=== PATIENT | male | born 2000 | race Caucasian/White ===

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

== ENCOUNTER 2018-08-09 16:11 | Emergency (ER) | payer MEDICAID, OTHER ==
[~2018-08-09] VITALS: Ht 170.2 cm; Wt 69.4 kg
[~2018-08-09 16:11] MED LIST changes: +ACET500C5 PO; -ALBU8.5H3 IH; +ALBU8.5H8 IH; +CETI10CA PO; +GUAI120S25 PO
[2018-08-09 16:19] VITALS: BP 122/67; PULSE 94; RESP 18; Ht 170.2 cm; Wt 69.4 kg
[2018-08-09] MEDS ORDERED: IBUPROFEN 400 MG TAB PO STA (17:49)
[2018-08-09] MEDS ORDERED: ACETAMINOPHEN 325 MG TAB PO STA (17:49)
[2018-08-09] MEDS ORDERED: IBUP-1542 PO (17:56)
[2018-08-09] MEDS ORDERED: ACET500C5 PO (17:56)
--- NOTE | 2018-08-09 18:04 | ERD ---
ER Documentation Chief Complaint Chief Complaint cough, body aches and fever x2 days HPI 18-year-old male with past medical history of questionable asthma, no past surgical history who presents with 2-day complaint of cough, generalized body aches, fevers, headache, sore throat, rhinorrhea. Had intermittent shortness of breath pleuritic type chest discomfort with cough. 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 He otherwise denies chest pain, nausea, vomiting, abdominal pain. Has a stable history of asthma but does not take any medications not had any exacerbations. Took NyQuil for his symptoms. Has vital signs noted fever of 102.1. ROS All systems reviewed and are negative except as per history of present illness. Medications Home Meds Active Scripts Ibuprofen* (Motrin*) 600 Mg Tab, 600 MG PO Q6, #30 TAB Prov:DEVON SWEENEY PA-C 08/09/18 Acetaminophen* (Tylophen*) 500 Mg Capsule, 1 CAP PO Q6H PRN for PAIN AND OR ELEVATED TEMP, #20 CAP Prov:DEVON SWEENEY PA-C 08/09/18 Acetaminophen* (Tylophen*) 500 Mg Capsule, 1 CAP PO Q6H PRN for PAIN AND OR ELEVATED TEMP, #20 CAP Prov:AMANDA ROMERO NP 10/25/16 Cetirizine Hcl* (Zyrtec*) 10 Mg Capsule, 10 MG PO DAILY, #30 TAB.CHEW Prov:AMANDA ROMERO NP 10/25/16 Sniyfaegyrm-W-Ycirdofyxm Hb* (Guaifenesin* DM Syrup) 120 Ml Syrup, 5 ML PO Q4H PRN for COUGH, #120 ML Prov:AMANDA ROMERO NP 10/25/16 Ibuprofen* (Motrin*) 600 Mg Tab, 600 MG PO Q6, #20 TAB Prov:MARY LEON PA-C 01/15/15 Albuterol Sulfate* (Albuterol Sulfate* HFA) 8.5 Gm Hfa.aer.ad, 1-2 PUFF INH Q4 PRN for SHORTNESS OF BREATH, #1 EA Prov:MARY LEON PA-C 01/15/15 Prednisone* (Prednisone*) 20 Mg Tab, 40 MG PO DAILY for 5 Days, TAB Prov:MARY LEON PA-C 01/15/15 Reported Medications [qtussin] No Conflict Check 07/25/11 Ibuprofen* Susp (Motrin* Susp) 20 Mg/Ml Susp 07/25/11 Albuterol Sulfate* (Proair HFA*) 8.5 Gm Hfa.aer.ad, 8.5 GM IH PRN 05/06/11 Allergies Allergies: Coded Allergies: No Known Allergy (Verified , 08/03/14) PMhx/Soc History of Surgery: Yes (L femur repair) Anesthesia Reaction: No Hx Neurological Disorder: No Hx Respiratory Disorders: Yes (Asthma) Hx Cardiac Disorders: No Hx Psychiatric Problems: No Hx Miscellaneous Medical Probl: Yes (mild asthma, L subtrochanteric femur fx 03/17/2010) Hx Alcohol Use: No Hx Substance Use: No Hx Tobacco Use: No FmHx Family History: No diabetes, No coronary disease, No other Physical Exam Vitals Vital Signs Date Temp Pulse Resp B/P (MAP) Pulse Ox O2 O2 Flow FiO2 Time Delivery Rate 08/09/18 102.4 17:56 08/09/18 102.4 17:56 08/09/18 102.1 94 18 122/67 98 16:19 (85) Physical Exam I have reviewed the triage vital signs. Const: Well nourished, well developed, appears stated age Eyes: PERRL, no conjunctival injection HENT: NCAT, Neck supple without meningismus CV: RRR, Warm, well-perfused extremities RESP: No wheezing or rhonchi, poor expiratory effort GI: soft, non-tender, non-distended, no masses MSK: No gross deformities appreciated Skin: Warm, dry. No rashes Neuro: grossly non focal Psych: Appropriate mood and affect. Results 24 hrs Current Medications Medications Dose Sig/Michelle Start Time Status Last (Trade) Ordered Route PRN Stop Time Admin Dose Reason Admin 650 mg ONCE STAT 08/09/18 DC 08/09/18 Acetaminophen PO 17:49 17:56 (Tylenol 08/09/18 17:51 Tab) Ibuprofen 400 mg ONCE STAT 08/09/18 DC 08/09/18 (Motrin) PO 17:49 17:56 08/09/18 17:51 Procedures/MDM 18-year-old male presents with flulike symptoms and fever for 2 days. Course: Tylenol and ibuprofen with good effect, chest x-ray without acute finding, symptoms likely viral URI in nature. The patient's clinical presentation is very consistent with an acute viral syndrome. No evidence of pneumonia. The patient is well-appearing without respiratory distress. Normal oxygen saturation. No indication for Tamiflu. The patient does not exhibit any clinical signs or symptoms concerning for serious bacterial infection or systemic illness. Based on history and clinical exam findings the patient does not appear to have evidence of pneumonia, strep pharyngitis, urinary tract infection, bacteremia, sepsis, or meningitis. For these reasons I do not believe it is necessary to obtain laboratory testing. I believe it would be appropriate for symptom control, and close outpatient primary care follow-up. We discussed follow up with the patient's primary care doctor within 24 to 48 hours as needed. We also discussed return to the emergency room for worsening symptoms or worsening condition. DISPOSITION PLAN: We discussed follow up with the patient's primary care doctor within 24 to 48 hours. Patient counseled regarding my diagnostic impression and care plan. Prior to discharge all questions answered. Pt agrees with treatment plan and understands strict return precautions. Precautionary instructions provided including instructions to return to the ER if not improving or for any worsening or changing symptoms or concerns. Disclaimer: Inadvertent spelling and grammatical errors are likely due to EHR/dictation software use and do not reflect on the overall quality of patient care. Also, please note that the electronic time recorded on this note does not necessarily reflect the actual time of the patient encounter. Departure Diagnosis: Primary Impression: Influenza-like symptoms Condition: Stable Patient Instructions: Influenza (Adult), Uri, Viral, No Abx (Adult) Referrals: [facility] YOU HAVE RECEIVED A MEDICAL SCREENING EXAM AND THE RESULTS INDICATE THAT YOU DO NOT HAVE A CONDITION THAT REQUIRES URGENT TREATMENT IN THE EMERGENCY DEPARTMENT. FURTHER EVALUATION AND TREATMENT OF YOUR CONDITION CAN WAIT UNTIL YOU ARE SEEN IN YOUR DOCTORS OFFICE WITHIN THE NEXT 1-2 DAYS. IT IS YOUR RESPONSIBILITY TO MAKE AN APPOINTMENT FOR FOLOW-UP CARE. IF YOU HAVE A PRIMARY DOCTOR --you should call your primary doctor and schedule an appointment IF YOU DO NOT HAVE A PRIMARY DOCTOR YOU CAN CALL OUR PHYSICIAN REFERRAL HOTLINE AT IF YOU CAN NOT AFFORD TO SEE A PHYSICIAN YOU CAN CHOSE FROM THE FOLLOWING [facility] [address] [facility]. [facility] [address] [facility]. [facility] [address] [facility] [address] [facility] [address] [facility]. [facility] [address] Additional Instructions: Call your primary care doctor TOMORROW for an appointment during the next 2-3 days.See the doctor sooner or return here if your condition worsens before your appointment time. DEVON SWEENEY PA-C Aug 09, 2018 18:04
== END 2018-08-09 18:56 | disposition home or self-care (01) ==
LOC: FTE 16:11
DX: J02.9 Acute pharyngitis, unspecified (principal); J34.89 Other specified disorders of nose and nasal sinuses; J45.909 Unspecified asthma, uncomplicated; R07.89 Other chest pain
CPT/HCPCS: 71046; Z7502; Z7610

== ENCOUNTER 2018-08-10 23:28 | Emergency (ER) | payer OTHER ==
[~2018-08-10] VITALS: Wt 68.6 kg
[2018-08-11] MEDS ORDERED: PROM5SYR2 PO (04:16)
[2018-08-11] MEDS ORDERED: PROMETHAZINE/CODEINE 5ML CUP PO ONE (04:30)
[2018-08-11 04:36] VITALS: BP 139/86; PULSE 89; RESP 20
--- NOTE | 2018-08-11 20:16 | ERD ---
ER Documentation Chief Complaint Chief Complaint SCHWARZ, COUGH, DIARRHEA, FEVER X'S 3 DAYS HPI 18-year-old male presents complaint of headache, cough, body aches, diarrhea, fever, for the past 3 days. Patient was just here yesterday and was diagnosed with influenza. However he states he has been having difficulty falling asleep due to the cough and would like cough medication. Denies any worsening symptoms from last appointment. ROS All systems reviewed and are negative except as per history of present illness. Medications Home Meds Active Scripts Promethazine HCl/Codeine (Prometh-Codein 6.25-10 mg/5 ml) 5 Ml Syrup, 5 ML PO Q4, #4 OZ Prov:LILA HANSEN 08/11/18 Ibuprofen* (Motrin*) 600 Mg Tab, 600 MG PO Q6, #30 TAB Prov:DEVON SWEENEY PA-C 08/09/18 Acetaminophen* (Tylophen*) 500 Mg Capsule, 1 CAP PO Q6H PRN for PAIN AND OR ELEVATED TEMP, #20 CAP Prov:DEVON SWEENEY PA-C 08/09/18 Acetaminophen* (Tylophen*) 500 Mg Capsule, 1 CAP PO Q6H PRN for PAIN AND OR ELEVATED TEMP, #20 CAP Prov:AMANDA ROMERO NP 10/25/16 Cetirizine Hcl* (Zyrtec*) 10 Mg Capsule, 10 MG PO DAILY, #30 TAB.CHEW Prov:AMANDA ROMERO NP 10/25/16 Hiekgxtnluy-Z-Shjfwxeiee Hb* (Guaifenesin* DM Syrup) 120 Ml Syrup, 5 ML PO Q4H PRN for COUGH, #120 ML Prov:AMANDA ROMERO NP 10/25/16 Ibuprofen* (Motrin*) 600 Mg Tab, 600 MG PO Q6, #20 TAB Prov:MARY LEON PA-C 01/15/15 Albuterol Sulfate* (Albuterol Sulfate* HFA) 8.5 Gm Hfa.aer.ad, 1-2 PUFF INH Q4 PRN for SHORTNESS OF BREATH, #1 EA Prov:MARY LEON PA-C 01/15/15 Prednisone* (Prednisone*) 20 Mg Tab, 40 MG PO DAILY for 5 Days, TAB Prov:MARY LEON PA-C 01/15/15 Reported Medications [qtussin] No Conflict Check 07/25/11 Ibuprofen* Susp (Motrin* Susp) 20 Mg/Ml Susp 07/25/11 Albuterol Sulfate* (Proair HFA*) 8.5 Gm Hfa.aer.ad, 8.5 GM IH PRN 05/06/11 Allergies Allergies: Coded Allergies: No Known Allergy (Verified , 08/03/14) PMhx/Soc Medical and Surgical Hx: pt denies Medical Hx, pt denies Surgical Hx History of Surgery: Yes (L femur repair) Anesthesia Reaction: No Hx Neurological Disorder: No Hx Respiratory Disorders: Yes (Asthma) Hx Cardiac Disorders: No Hx Psychiatric Problems: No Hx Miscellaneous Medical Probl: Yes (mild asthma, L subtrochanteric femur fx 03/17/2010) Hx Alcohol Use: No Hx Substance Use: No Hx Tobacco Use: No Smoking Status: Never smoker FmHx Family History: No diabetes, No coronary disease, No other Physical Exam Vitals Vital Signs Date Temp Pulse Resp B/P (MAP) Pulse Ox O2 O2 Flow FiO2 Time Delivery Rate 08/11/18 102.5 89 20 139/86 97 Room Air 04:36 (103) 08/10/18 99.6 91 18 160/74 96 23:39 (102) Physical Exam Const: No acute distress Head: Atraumatic Eyes: Normal Conjunctiva ENT: Normal External Ears, Nose and Mouth. Neck: Full range of motion. No meningismus. Resp: Clear to auscultation bilaterally Cardio: Regular rate and rhythm, no murmurs Abd: Soft, non tender, non distended. Normal bowel sounds Skin: No petechiae or rashes Back: No midline or flank tenderness Ext: No cyanosis, or edema Neur: Awake and alert Psych: Normal Mood and Affect Results 24 hrs Current Medications Medications Dose Sig/Michelle Start Time Status Last (Trade) Ordered Route PRN Stop Time Admin Dose Reason Admin Promethazine 10 ml ONCE ONCE 08/11/18 DC 08/11/18 HCl/ PO 04:30 08/11/18 04:16 Codeine 04:31 (Phenergan/ Codeine) Procedures/MDM MDM: Patient's presentation consistent with influenza. I have low suspicion for strep throat based on history and exam findings, as well as patient not meeting centor criteria for rapid strep testing. I have low suspicion for bacterial sinusitis, pneumonia, tuberculosis, meningitis, pneumothorax, PE, aspirated foreign body, respiratory distress, acute heart failure or other life threatening etiology based on patient history and exam findings. Patient given rx for promethazine with codeine. Patient advised to rest and stay well hydrat ed. Patient discharged with strict ER precautions. Patient advised to follow up with PMD. All questions answered at discharge. Departure Diagnosis: Primary Impression: Influenza Condition: Stable Patient Instructions: Influenza (Adult) Referrals: [facility] YOU HAVE RECEIVED A MEDICAL SCREENING EXAM AND THE RESULTS INDICATE THAT YOU DO NOT HAVE A CONDITION THAT REQUIRES URGENT TREATMENT IN THE EMERGENCY DEPARTMENT. FURTHER EVALUATION AND TREATMENT OF YOUR CONDITION CAN WAIT UNTIL YOU ARE SEEN IN YOUR DOCTORS OFFICE WITHIN THE NEXT 1-2 DAYS. IT IS YOUR RESPONSIBILITY TO MAKE AN APPOINTMENT FOR FOLOW-UP CARE. IF YOU HAVE A PRIMARY DOCTOR --you should call your primary doctor and schedule an appointment IF YOU DO NOT HAVE A PRIMARY DOCTOR YOU CAN CALL OUR PHYSICIAN REFERRAL HOTLINE AT IF YOU CAN NOT AFFORD TO SEE A PHYSICIAN YOU CAN CHOSE FROM THE FOLLOWING [place] [facility] [address] [facility]. [facility] [address] [facility] [address] [facility] [address] [facility]. [facility] [address] [facility]. [facility]. [address] Additional Instructions: FOLLOW UP WITH YOUR PRIMARY CARE PHYSICIAN TOMORROW.Return to this facility if you are not improving as expected. LILA HANSEN August 11, 2018 20:16
== END 2018-08-11 04:50 | disposition home or self-care (01) ==
LOC: FTE 23:28
DX: J11.1 Influenza due to unidentified influenza virus with other respiratory manifestations (principal); J45.909 Unspecified asthma, uncomplicated
CPT/HCPCS: Z7502; Z7610; 99283

== ENCOUNTER 2018-09-02 15:39 | Emergency (ER) | payer OTHER ==
[~2018-09-02] VITALS: Wt 58.8 kg
[~2018-09-02 15:39] MED LIST changes: +PROM5SYR2 PO
[2018-09-02 15:42] VITALS: BP 137/79; PULSE 79; RESP 18
--- NOTE | 2018-09-02 16:20 | ERD ---
ER Documentation Chief Complaint Chief Complaint SORE THROAT, COULD NOT BREATH/ANXIETY HPI 18-year-old male with past medical history of asthma presenting to the emergency department complaints of chest tightness with associated mild shortness of breath which is intermittent. He states his symptoms are typically relieved with albuterol inhaler at home, however he ran out of his prescription. He states he recently had a viral illness consisting of nasal congestion and sore throat and cough. He denies any recent travel. He denies any chest pain or shortness of breath which is worse on exertion. He denies any fevers, chills, abdominal pain, or other symptoms at this time. ROS All systems reviewed and are negative except as per history of present illness. Medications Home Meds Active Scripts Loratadine* (Claritin*) 10 Mg Capsule, 10 MG PO DAILY, #30 CAP Prov:LILA WASSERMAN PA-C 09/02/18 Phenol* (Chloraseptic* Eureka) 177 Ml [place]ka.pump, 2 SPRAY MT Q2H PRN for SORE THROAT, #1 BOTTLE Prov:LILA WASSERMAN PA-C 09/02/18 Albuterol Sulfate* (Ventolin HFA*) 18 Gm Hfa.aer.ad, 2 PUFF INHALATION Q4H, #1 INHALER Prov:LILA WASSERMAN PA-C 09/02/18 Promethazine HCl/Codeine (Prometh-Codein 6.25-10 mg/5 ml) 5 Ml Syrup, 5 ML PO Q4, #4 OZ Prov:LILA HANSEN 08/11/18 Ibuprofen* (Motrin*) 600 Mg Tab, 600 MG PO Q6, #30 TAB Prov:DEVON SWEENEY PA-C 08/09/18 Acetaminophen* (Tylophen*) 500 Mg Capsule, 1 CAP PO Q6H PRN for PAIN AND OR ELEVATED TEMP, #20 CAP Prov:DEVON SWEENEY PA-C 08/09/18 Acetaminophen* (Tylophen*) 500 Mg Capsule, 1 CAP PO Q6H PRN for PAIN AND OR ELEVATED TEMP, #20 CAP Prov:AMANDA ROMERO NP 10/25/16 Cetirizine Hcl* (Zyrtec*) 10 Mg Capsule, 10 MG PO DAILY, #30 TAB.CHEW Prov:AMANDA ROMERO NP 10/25/16 Brlmbqzegez-V-Zzidiwfcjq Hb* (Guaifenesin* DM Syrup) 120 Ml Syrup, 5 ML PO Q4H PRN for COUGH, #120 ML Prov:AMANDA ROMERO NIPPING MACHINE OPERATOR 10/25/16 Ibuprofen* (Motrin*) 600 Mg Tab, 600 MG PO Q6, #20 TAB Prov:MARY LEON PA-C 01/15/15 Albuterol Sulfate* (Albuterol Sulfate* HFA) 8.5 Gm Hfa.aer.ad, 1-2 PUFF INH Q4 PRN for SHORTNESS OF BREATH, #1 EA Prov:MARY LEON PA-C 01/15/15 Prednisone* (Prednisone*) 20 Mg Tab, 40 MG PO DAILY for 5 Days, TAB Prov:MARY LEON PA-C 01/15/15 Reported Medications [qtussin] No Conflict Check 07/25/11 Ibuprofen* Susp (Motrin* Susp) 20 Mg/Ml Susp 07/25/11 Albuterol Sulfate* (Proair HFA*) 8.5 Gm Hfa.aer.ad, 8.5 GM IH PRN 05/06/11 Allergies Allergies: Coded Allergies: No Known Allergy (Verified , 08/03/14) PMhx/Soc History of Surgery: Yes (L femur repair) Anesthesia Reaction: No Hx Neurological Disorder: No Hx Respiratory Disorders: Yes (Asthma) Hx Cardiac Disorders: No Hx Psychiatric Problems: No Hx Miscellaneous Medical Probl: Yes (mild asthma, L subtrochanteric femur fx 03/17/2010) Hx Alcohol Use: No Hx Substance Use: No Hx Tobacco Use: No FmHx Family History: No diabetes Physical Exam Vitals Vital Signs Date Temp Pulse Resp B/P (MAP) Pulse Ox O2 O2 Flow FiO2 Time Delivery Rate 09/02/18 97.3 79 18 137/79 99 15:42 (98) Physical Exam Const: No acute distress Head: Atraumatic Eyes: Normal Conjunctiva ENT: Normal External Ears, Nose and Mouth. Neck: Full range of motion. No meningismus. Resp: Shallow inspiratory effort. Clear to auscultation bilaterally. No crackles. No wheezing. Cardio: Regular rate and rhythm, no murmurs Skin: No petechiae or rashes Ext: No cyanosis, or edema Neur: Awake and alert Psych: Normal Mood and Affect Results 24 hrs [place] [id number] Radiology Main Line: [phone] DIAGNOSTIC IMAGING REPORT Patient: ADAN ADAMS : 2000 Age: 18 Sex: M MR #: [id number] DOS: 09/02/18 0000 Ordering MD: LILA WASSERMAN PA-C Location: E/R Room/Bed: PROCEDURE: XR Chest. CLINICAL INDICATION: Chest pain and cough TECHNIQUE: Single frontal view of the chest was obtained COMPARISON: Chest radiograph 08/09/2018 FINDINGS: The heart and mediastinum are within normal limits. No discrete focal consolidation. There is no pleural effusion or pneumothorax. IMPRESSION: No acute cardiopulmonary process. RPTAT: PP Physician Myriam Date Time Electronically viewed and signed by Physician Myriam on 09/02/2018 17:19 rV/ CC: LILA WASSERMAN PA-C [id number] Procedures/MDM 18-year-old male presenting to the emergency department complaints of some intermittent shortness of breath and chest tightness, likely asthma related. Patient had shallow inspiratory effort on examination but was 99% on room air with no wheezing on examination. Chest x-ray is negative for any acute abnormalities. The full report interpreted by the radiologist may be viewed above. Patient is stable and appropriate for discharge and further outpatient management with prescriptions to treat his symptoms at home. He was advised to return to the department mainly for any new or worsening or concerning symptoms. There is no evidence to suggest pneumonia, sepsis, pulmonary embolism, pneumothorax, or other emergencies. The patient was in agreement with the diagnosis, plan, need for follow-up, and return precautions. Departure Diagnosis: Primary Impression: Asthma with acute exacerbation Condition: Fair Patient Instructions: Asthma, Acute (Adult) LILA WASSERMAN PA-C September 02, 2018 16:20
[2018-09-02] MEDS ORDERED: ALBU18HF INHALATION (17:32)
[2018-09-02] MEDS ORDERED: PHEN177S43 MT (17:32)
[2018-09-02] MEDS ORDERED: LORA10CA PO (17:32)
== END 2018-09-02 17:32 | disposition home or self-care (01) ==
LOC: E/R 15:39
DX: J45.901 Unspecified asthma with (acute) exacerbation (principal)
CPT/HCPCS: 71045; Z7502

== ENCOUNTER 2018-09-21 04:48 | Emergency (ER) | payer SELFPAY ==
[~2018-09-21] VITALS: Ht 170.2 cm; Wt 69.7 kg
[~2018-09-21 04:48] MED LIST changes: +ALBU18HF INHALATION; +LORA10CA PO; +PHEN177S43 MT
[2018-09-21 04:55] VITALS: BP 136/89; PULSE 75; RESP 18; Ht 170.2 cm; Wt 69.7 kg
[2018-09-21] MEDS ORDERED: HYDR-3029 PO (07:26)
--- NOTE | 2018-09-21 07:48 | ERD ---
ER Documentation Chief Complaint Chief Complaint sob/anxiety x 3 weeks HPI 18-year-old male presenting with shortness of breath chest pain and anxiety. Patient states that this is been going on for the last 3 weeks and is intermittent. He states is worse he wakes up in the morning and he is able to hold his breath and breakthrough. He states this has been persistent. Denies any fevers. Denies productive cough. Medical history is asthma. Surgical history femur surgery. Social history smokes marijuana Occasionally. NKDA ROS All systems reviewed and are negative except as per history of present illness. Medications Home Meds Active Scripts Hydroxyzine Hcl* (Hydroxyzine Hcl*) 10 Mg Tablet, 10 MG PO Q6H PRN for ANXIETY, #30 TAB Prov:LEV BRAVO PA-C 09/21/18 Loratadine* (Claritin*) 10 Mg Capsule, 10 MG PO DAILY, #30 CAP Prov:LILA WASSERMAN PA-C 09/02/18 Phenol* (Chloraseptic* [place]) 177 Ml [place].pump, 2 SPRAY MT Q2H PRN for SORE THROAT, #1 BOTTLE Prov:LILA WASSERMAN PA-C 09/02/18 Albuterol Sulfate* (Ventolin HFA*) 18 Gm Hfa.aer.ad, 2 PUFF INHALATION Q4H, #1 INHALER Prov:LILA WASSERMAN PA-C 09/02/18 Promethazine HCl/Codeine (Prometh-Codein 6.25-10 mg/5 ml) 5 Ml Syrup, 5 ML PO Q4, #4 OZ Prov:LILA HANSEN 08/11/18 Ibuprofen* (Motrin*) 600 Mg Tab, 600 MG PO Q6, #30 TAB Prov:DEVON SWEENEY PA-C 08/09/18 Acetaminophen* (Tylophen*) 500 Mg Capsule, 1 CAP PO Q6H PRN for PAIN AND OR ELEVATED TEMP, #20 CAP Prov:DEVON SWEENEY PA-C 08/09/18 Acetaminophen* (Tylophen*) 500 Mg Capsule, 1 CAP PO Q6H PRN for PAIN AND OR ELEVATED TEMP, #20 CAP Prov:AMANDA ROMERO NP 10/25/16 Cetirizine Hcl* (Zyrtec*) 10 Mg Capsule, 10 MG PO DAILY, #30 TAB.CHEW Prov:AMANDA ROMERO HEADHUNTER 10/25/16 Duwcqdalfht-G-Quglmzyuts Hb* (Guaifenesin* DM Syrup) 120 Ml Syrup, 5 ML PO Q4H PRN for COUGH, #120 ML Prov:AMANDA ROMERO HEADHUNTER 10/25/16 Ibuprofen* (Motrin*) 600 Mg Tab, 600 MG PO Q6, #20 TAB Prov:MARY LEON PA-C 01/15/15 Albuterol Sulfate* (Albuterol Sulfate* HFA) 8.5 Gm Hfa.aer.ad, 1-2 PUFF INH Q4 PRN for SHORTNESS OF BREATH, #1 EA Prov:MARY LEON PA-C 01/15/15 Prednisone* (Prednisone*) 20 Mg Tab, 40 MG PO DAILY for 5 Days, TAB Prov:MARY LEON PA-C 01/15/15 Reported Medications [qtussin] No Conflict Check 07/25/11 Ibuprofen* Susp (Motrin* Susp) 20 Mg/Ml Susp 07/25/11 Albuterol Sulfate* (Proair HFA*) 8.5 Gm Hfa.aer.ad, 8.5 GM IH PRN 05/06/11 Allergies Allergies: Coded Allergies: No Known Allergy (Verified , 08/03/14) PMhx/Soc History of Surgery: Yes (L femur repair) Anesthesia Reaction: No Hx Neurological Disorder: No Hx Respiratory Disorders: Yes (Asthma) Hx Cardiac Disorders: No Hx Psychiatric Problems: No Hx Miscellaneous Medical Probl: Yes (mild asthma, L subtrochanteric femur fx 03/17/2010) Hx Alcohol Use: No Hx Substance Use: No Hx Tobacco Use: No Smoking Status: Never smoker FmHx Family History: No diabetes, No coronary disease, No other Physical Exam Vitals Vital Signs Date Temp Pulse Resp B/P (MAP) Pulse Ox O2 O2 Flow FiO2 Time Delivery Rate 09/21/18 97.4 75 18 136/89 99 04:55 (105) Physical Exam GENERAL: The patient is well-appearing, well-nourished, in no acute distress HEENT: Atraumatic. Conjunctivae are pink. Pupils equal, round, and reactive to light. There is no scleral icterus. Tympanic membranes clear bilaterally. Oropharynx clear. No nystagmus or photophobia. NECK: C-spine is soft and supple. There is no meningismus. There is no cervical lymphadenopathy. CHEST: Clear to auscultation bilaterally. There are no rales, wheezes or rhonchi. HEART: Regular rate and rhythm. No murmurs, clicks, rubs or gallops. Procedures/MDM DIAGNOSTIC IMAGING REPORT Patient: ADAN ADAMS : 2000 Age: 18 Sex: M MR #: [id number] DOS: 09/21/18 0623 Ordering MD: RAJAT BRAVO PA-C Location: [facility] Room/Bed: PROCEDURE: XR Chest. CLINICAL INDICATION: Chest pain TECHNIQUE: Single portable view of the chest was obtained. COMPARISON: 09/02/2018 FINDINGS: Cardiac/vascular structures: Normal cardiomediastinal silhouette. Pulmonary: Lungs are clear. No pleural effusion. No evidence of pneumothorax. Osseous structures: Normal Soft tissues: Normal IMPRESSION: No acute cardiopulmonary disease. EKG: Rate/Rhythm: 58 bpm Normal Sinus Rhythm QRS, ST, T-waves: No changes consistent w/ acute ischemia Impression: No evidence of ischemia or arrhythmia MDM: 18-year-old male presenting with chest pain. Patient likely has anxious type reaction. Patient's EKG and chest x-ray is within normal limits. I have low suspicion for cardiac emergency. Patient is discharged with strict ER precautions and told to follow-up with primary care within 1 to 2 days for close evaluation. Patient is told symptoms change or worsen to return immediately to the ER. All questions answered at discharge Departure Diagnosis: Primary Impression: Anxiety Additional Impression: Shortness of breath Condition: Stable Patient Instructions: Coping with Shortness of Breath: Controlling Stress Referrals: COMMUNITY CLINICS YOU HAVE RECEIVED A MEDICAL SCREENING EXAM AND THE RESULTS INDICATE THAT YOU DO NOT HAVE A CONDITION THAT REQUIRES URGENT TREATMENT IN THE EMERGENCY DEPARTMENT. FURTHER EVALUATION AND TREATMENT OF YOUR CONDITION CAN WAIT UNTIL YOU ARE SEEN IN YOUR DOCTORS OFFICE WITHIN THE NEXT 1-2 DAYS. IT IS YOUR RESPONSIBILITY TO MAKE AN APPOINTMENT FOR FOLOW-UP CARE. IF YOU HAVE A PRIMARY DOCTOR --you should call your primary doctor and schedule an appointment IF YOU DO NOT HAVE A PRIMARY DOCTOR YOU CAN CALL OUR PHYSICIAN REFERRAL HOTLINE AT IF YOU CAN NOT AFFORD TO SEE A PHYSICIAN YOU CAN CHOSE FROM THE FOLLOWING [facility] CLIN[facility] [address] [facility] [address] [facility] [address] [facility] [address] [facility]. [facility] [address] [facility]. [facility] [address] Additional Instructions: FOLLOW UP WITH YOUR PRIMARY CARE PHYSICIAN TOMORROW.Return to this facility if you are not improving as expected. LEV BRAVO PA-C Sep 21, 2018 07:48
== END 2018-09-21 07:59 | disposition home or self-care (01) ==
LOC: FTE 04:48
DX: F41.9 Anxiety disorder, unspecified (principal); J45.901 Unspecified asthma with (acute) exacerbation
CPT/HCPCS: 71045; 93005

== ENCOUNTER 2018-11-13 09:57 | Emergency (ER) | payer SELFPAY ==
[~2018-11-13] VITALS: Ht 165.1 cm; Wt 73.0 kg
[~2018-11-13 09:57] MED LIST changes: +HYDR-3029 PO
[2018-11-13 10:00] VITALS: BP 131/78; PULSE 68; RESP 18; Ht 165.1 cm; Wt 73.0 kg
--- NOTE | 2018-11-13 10:41 | ERD ---
ER Documentation Chief Complaint Chief Complaint lump near right testicular x2 mths getting bigger w/some pain HPI 18-year-old male with no reported past medical history presents with complaint of lump near right testicle over the past 2 months. States lump is progressively gotten larger and now mildly tender to touch. He denies any redness or swelling around the area, recent injury all trauma. Denies any family history of cancer. He otherwise denies fever, chills, discharge from penis, other lesions to scrotum or surrounding area, weight loss, history of STDs. He is sexually active with one partner and reports regular condom use. ROS All systems reviewed and are negative except as per history of present illness. Medications Home Meds Active Scripts Ibuprofen* (Motrin*) 600 Mg Tab, 600 MG PO Q6, #30 TAB Prov:DEVON SWEENEY PA-C 11/13/18 Hydroxyzine Hcl* (Hydroxyzine Hcl*) 10 Mg Tablet, 10 MG PO Q6H PRN for ANXIETY, #30 TAB Prov:LEV BRAVO PA-C 09/21/18 Loratadine* (Claritin*) 10 Mg Capsule, 10 MG PO DAILY, #30 CAP Prov:LILA WASSERMAN PA-C 09/02/18 Phenol* (Chloraseptic* [place]) 177 Ml [place].pump, 2 SPRAY MT Q2H PRN for SORE THROAT, #1 BOTTLE Prov:LILA WASSERMAN PA-C 09/02/18 Albuterol Sulfate* (Ventolin HFA*) 18 Gm Hfa.aer.ad, 2 PUFF INHALATION Q4H, #1 INHALER Prov:LILA WASSERMAN PA-C 09/02/18 Promethazine HCl/Codeine (Prometh-Codein 6.25-10 mg/5 ml) 5 Ml Syrup, 5 ML PO Q4, #4 OZ Prov:LILA HANSEN 08/11/18 Ibuprofen* (Motrin*) 600 Mg Tab, 600 MG PO Q6, #30 TAB Prov:DEVON SWEENEY PA-C 08/09/18 Acetaminophen* (Tylophen*) 500 Mg Capsule, 1 CAP PO Q6H PRN for PAIN AND OR ELEVATED TEMP, #20 CAP Prov:DEVON SWEENEY PA-C 08/09/18 Acetaminophen* (Tylophen*) 500 Mg Capsule, 1 CAP PO Q6H PRN for PAIN AND OR ELEVATED TEMP, #20 CAP Prov:AMANDA ROMERO SANITATION LABORER 10/25/16 Cetirizine Hcl* (Zyrtec*) 10 Mg Capsule, 10 MG PO DAILY, #30 TAB.CHEW Prov:AMANDA ROMERO SANITATION LABORER 10/25/16 Qdriwjvsixf-N-Lcsaahfcwn Hb* (Guaifenesin* DM Syrup) 120 Ml Syrup, 5 ML PO Q4H PRN for COUGH, #120 ML Prov:AMANDA ROMERO SANITATION LABORER 10/25/16 Ibuprofen* (Motrin*) 600 Mg Tab, 600 MG PO Q6, #20 TAB Prov:MARY LEON PA-C 01/15/15 Albuterol Sulfate* (Albuterol Sulfate* HFA) 8.5 Gm Hfa.aer.ad, 1-2 PUFF INH Q4 PRN for SHORTNESS OF BREATH, #1 EA Prov:MARY LEON PA-C 01/15/15 Prednisone* (Prednisone*) 20 Mg Tab, 40 MG PO DAILY for 5 Days, TAB Prov:MARY LEON PA-C 01/15/15 Reported Medications [qtussin] No Conflict Check 07/25/11 Ibuprofen* Susp (Motrin* Susp) 20 Mg/Ml Susp 07/25/11 Albuterol Sulfate* (Proair HFA*) 8.5 Gm Hfa.aer.ad, 8.5 GM IH PRN 05/06/11 Allergies Allergies: Coded Allergies: No Known Allergy (Verified , 11/13/18) PMhx/Soc History of Surgery: Yes (L femur repair) Anesthesia Reaction: No Hx Neurological Disorder: No Hx Respiratory Disorders: Yes (Asthma) Hx Cardiac Disorders: No Hx Psychiatric Problems: No Hx Miscellaneous Medical Probl: Yes (mild asthma, L subtrochanteric femur fx 03/17/2010) Hx Alcohol Use: No Hx Substance Use: No Hx Tobacco Use: No Smoking Status: Never smoker FmHx Family History: No diabetes, No coronary disease, No other Physical Exam Vitals Vital Signs Date Temp Pulse Resp B/P (MAP) Pulse Ox O2 O2 Flow FiO2 Time Delivery Rate 11/13/18 97.4 68 18 131/78 99 10:00 (95) Physical Exam I have reviewed the triage vital signs. Const: Well nourished, well developed, appears stated age Eyes: PERRL, no conjunctival injection HENT: NCAT, Neck supple without meningismus CV: RRR, Warm, well-perfused extremities RESP: CTAB, Unlabored respiratory effort GI: soft, non-tender, non-distended, no masses MSK: No gross deformities appreciated : Right testicle with fixed nodule, no surrounding erythema, swelling, nontender to palpation, cremasteric reflex intact Skin: Warm, dry. No rashes Neuro: grossly non focal Psych: Appropriate mood and affect. Procedures/MDM 18-year-old male presents with complaint of right testicular nodule. I have low suspicion for acute process such as testicular torsion, epididymitis, underlying infection that warrants further emergent care other than documented below. ED course: Ultrasound of scrotum findings consistent with spermatocele Patient advised to establish care with clinic PMD as he may require referral if area continues to grow or cause significant discomfort Patient provided with educational materials, list of clinics to establish care We will discharge with NSAID medications, strict return precautions explained in detail. DISPOSITION PLAN: We discussed follow up with the patient's primary care doctor within 24 to 48 hours. Patient counseled regarding my diagnostic impression and care plan. Prior to discharge all questions answered. Pt agrees with treatment plan and understands strict return precautions. Precautionary instructions provided including instructions to return to the ER if not improving or for any worsening or changing symptoms or concerns. Disclaimer: Inadvertent spelling and grammatical errors are likely due to EHR/dictation software use and do not reflect on the overall quality of patient care. Also, please note that the electronic time recorded on this note does not necessarily reflect the actual time of the patient encounter. Departure Diagnosis: Primary Impression: Pain in testicle Condition: Stable Referrals: COMMUNITY CLINICS YOU HAVE RECEIVED A MEDICAL SCREENING EXAM AND THE RESULTS INDICATE THAT YOU DO NOT HAVE A CONDITION THAT REQUIRES URGENT TREATMENT IN THE EMERGENCY DEPARTMENT. FURTHER EVALUATION AND TREATMENT OF YOUR CONDITION CAN WAIT UNTIL YOU ARE SEEN IN YOUR DOCTORS OFFICE WITHIN THE NEXT 1-2 DAYS. IT IS YOUR RESPONSIBILITY TO MAKE AN APPOINTMENT FOR FOLOW-UP CARE. IF YOU HAVE A PRIMARY DOCTOR --you should call your primary doctor and schedule an appointment IF YOU DO NOT HAVE A PRIMARY DOCTOR YOU CAN CALL OUR PHYSICIAN REFERRAL HOTLINE AT IF YOU CAN NOT AFFORD TO SEE A PHYSICIAN YOU CAN CHOSE FROM THE FOLLOWING [facility] [address] [facility] [address] [facility] [address] [facility] [address] [facility] [address] [facility]. [facility]. [address] Additional Instructions: Call your primary care doctor TOMORROW for an appointment during the next 2-3 days.See the doctor sooner or return here if your condition worsens before your appointment time. DEVON SWEENEY PA-C Nov 13, 2018 10:41
== END 2018-11-13 11:49 | disposition home or self-care (01) ==
LOC: FTE 09:57
DX: N50.811 Right testicular pain (principal); J45.909 Unspecified asthma, uncomplicated
CPT/HCPCS: 76870